=== PATIENT | male | born 1985 | race Caucasian/White ===

== ENCOUNTER 2020-03-13 07:52 | Emergency (ER) | payer OTHER, SELFPAY ==
--- NOTE | ~2020-03-13 | XR_ITS ---
EXAMINATION: XR chest 2V DATE: 03/13/2020 08:26 INDICATION: Chest pain. TECHNIQUE: Frontal and lateral views of the chest were obtained. COMPARISON: None. FINDINGS: The chest demonstrates clear lungs without pneumonia, pleural effusion, or pneumothorax. Th e heart size is normal. There is mild chronic anterior wedging of 2 midthoracic vertebral bodies. IMPRESSION: 1. No acute cardiopulmonary disease. Reviewed, dictated and finalized at location B. COORDINATOR
--- NOTE | 2020-03-13 07:57 | ECG_ITS ---
Measurements Intervals Reader Rate: 107 P: 34 KS: 150 QRS: 72 QRSD: 84 T: 40 QT: 332 QTc: 444 Interpretive Statements SINUS TACHYCARDIA ABNORMAL ECG Electronically Signed On 03-13-2020 14:37:22 ACID PUMPER by Vincenzo Linton D.O.
[2020-03-13 07:59] VITALS: BP 127/88; PULSE 103; RESP 15; TEMP 36.6; O2SAT 99
[2020-03-13 08:03] VITALS: PULSE 118
[2020-03-13 08:13] LABS: Basophils Percent Auto 0.5 % (0.2-1.2); Eosinophils Absolute Auto 0.1 K/mm3 (0-0.3); Eosinophils Percent Auto 0.8 % (0-4.4); Hematocrit 48.4 % (42.0-52.0); Hemoglobin 16.1 g/dL (14.0-18.0); Immature Granulocyte Absolute 0.02 K/mm3 (0.00-0.031); Immature Granulocyte Percent A 0.2 % (0-0.5); Lymphocytes Absolute Auto 3.44 K/mm3 (0.9-3.2); Lymphocytes Percent Auto 40.5 % (18.3-44.2); Mean Corpuscular HGB Conc 33.3 g/dl (32-36); Mean Corpuscular Hemoglobin 29.1 pg (26-34); Mean Corpuscular Volume 87.5 fl (80-100); Mean Platelet Volume 8.8 fl (7.4-10.4); Monocytes Absolute Auto 0.8 K/mm3 (0.1-0.6); Monocytes Percent Auto 9.4 % (2.6-8.5); Neutrophils Absolute Auto 4.1 K/mm3 (1.3-6.7); Neutrophils Percent Auto 48.6 % (45.5-73.1); Platelet Count Result 233 k/mm3 (150-375); Red Blood Count 5.53 M/mm3 (4.6-6.20); Red Cell Distribution Width 12.7 % (11.5-14.5); White Blood Count 8.5 K/mm3 (4.5-10.0)
[2020-03-13 08:22] LABS: Prothrombin Time 13.5 Seconds (11.1-14.7)
[2020-03-13 08:23] LABS: Anion Gap 9 mmol/L (8-16); Blood Urea Nitrogen 19 mg/dL (9-20); Calcium 8.8 mg/dL (8.4-10.2); Carbon Dioxide 28 mmol/L (22-30); Chloride 106 mmol/L (98-107); Estimated CRCL calculation 118 ml/min; Estimated Glomerular Filt Rate > 60; Glucose 107 mg/dL (75-110); Partial Thromboplastin Time 27.3 SECONDS (22.3-36.8); Potassium 3.7 mmol/L (3.4-5.0); Sodium 143 mmol/L (137-145)
[2020-03-13 08:35] LABS: Troponin I < 0.012 ng/mL (0.000-0.034)
--- NOTE | 2020-03-13 08:49 | PC.NURSE ---
Pt c/o having anxiety. Discussed w/ EDP Dr Duggan and gave VORB to give 1MG Ativan PO.
[2020-03-13 08:53] VITALS: BP 142/104; PULSE 91; RESP 17; O2SAT 98
[2020-03-13] MEDS: LORazepam (*CRX) 1 MG TABLET PO (08:53)
--- NOTE | 2020-03-13 09:46 | ED.CHESTPAIN ---
HPI - Chest Pain General Chief Complaint: Chest Pain Stated Complaint: chest pain after strong cannibas Time Seen by Provider: 03/13/20 09:06 Source: patient and family Mode of arrival: ambulatory Limitations: no limitations History of Present Illness HPI narrative: Patient is a 35-year-old male who presents for chest discomfort anxiety and headache that began after taking edible marijuana last night took more than he normally takes patient's mother and he were arguing about this became very stressed out with longstanding history of anxiety similar occurrence in the past patient on arrival to emergency department is in no distress does not appear uncomfortable denies any recent illness or other complaints Related Data Home Medications Medication Instructions Recorded Confirmed atorvastatin 03/13/20 sertraline mg 03/13/20 Allergies Allergy/AdvReac Type Severity Reaction Status Date / Time No Known Allergies Allergy Verified 03/13/20 08:09 Review of Systems Review of Systems: All systems reviewed & are unremarkable except as noted in HPI and below PMFSH Past Medical History Medical History (Updated 03/13/20 @ 09:49 by Aniceto Alvarenga PA-C) Anxiety Family History Family History (Updated 11/28/15 @ 23:21 by DOCTOR UNKNOWN) Mother Patient's mother is in good health Sibling Patient's sister is in good health Father Family history of coronary artery disease Patient's father is Other Diabetes mellitus Family history of cardiovascular disease Social History Social History Smoking status: Never smoker Alcohol intake: never Gender identity (if verbalized by the patient): Male Exam Narrative: Exam Narrative: GENERAL: Well-appearing, well-nourished, and in no acute distress. HEAD: Normocephalic, atraumatic. EYES: PERRLA and EOMI. ENT: Nares clear, no rhinorrhea or epistaxis. Mucous membranes moist. NECK: Supple. No adenopathy or masses. No carotid bruits or JVD CHEST: Clear to auscultation. No respiratory distress. No wheezes rales or rhonchi HEART: Regular rate and rhythm. No murmur heard. Normal peripheral pulses. ABDOMEN: Soft, nontender, nondistended EXTREMITIES: Normal range of motion. No edema. SKIN: Warm, dry, no rash. NEURO: No focal deficits. Alert and oriented x3. PSYCH: Normal mood and affect. Course Course Emergency Course: Patient in the room no distress aware of case findings treatment plan diagnosis agreeing to follow-up as directed with primary care Vital Signs Vital signs: Vital Signs Temperature 97.8 F 03/13/20 07:59 Pulse Rate 103 H 03/13/20 07:59 Respiratory Rate 15 03/13/20 07:59 Blood Pressure 127/88 03/13/20 07:59 Pulse Oximetry 99 03/13/20 07:59 Temperature 97.8 F 03/13/20 07:59 Pulse Rate 91 03/13/20 08:53 Respiratory Rate 17 03/13/20 08:53 Blood Pressure 142/104 H 03/13/20 08:53 Pulse Oximetry 98 03/13/20 08:53 MDM - Chest Pain MDM Narrative Medical decision making narrative: Patient in the room in no distress aware of case findings treatment plan diagnosis. Paitents EKGs and labs are without significant high risk changes. Cardiac risk facotrs were reviewd. Patient is felt likely to be low risk for ACS and resonable for further risk stratification testing as an outpatient. Pain was not suddne or maximal in onset without tearing or ripping. quality. No other signs or symptoms to suggest aortic dissection. A low-risk Wells criteria is noted. PE is felt to be unlikely. No pneumonia or URI symptoms were seen on evaluation today. Patient is felt to b resonable for continued evaluation as an outpatient. Lab Data Result diagrams: 03/13/20 08:07 03/13/20 08:07 Labs: Lab Results 03/13/20 03/13/20 03/13/20 Range/Units 08:07 08:07 08:07 WBC 8.5 (4.5-10.0) K/mm3 RBC 5.53 (4.6-6.20) M/mm3 Hgb 16.1 (1
[2020-03-13 09:51] VITALS: BP 117/73; PULSE 95; RESP 16; TEMP 36.6; O2SAT 99
[2020-03-13 10:39] VITALS: BP 124/81; PULSE 94; RESP 18; O2SAT 98
== END 2020-03-13 10:40 | disposition home or self-care (01) ==
PROVIDERS: Emergency Provider Emergency Medicine; PCP Family Medicine
DX: R07.89 Other chest pain (principal); F12.90 Cannabis use, unspecified, uncomplicated; F41.9 Anxiety disorder, unspecified; R00.0 Tachycardia, unspecified
CPT/HCPCS: 36415; 71046; 80048; 84484; 85025; 85610; 85730; 93005; 99284; A9270